=== PATIENT | male | born 1960 | race Caucasian/White ===

== ENCOUNTER 2016-09-14 17:28 | Emergency (ER) | payer BC ==
[2016-09-14 17:48] VITALS: BP 112/62
--- NOTE | 2016-09-14 18:02 | EDM.PDOC ---
Scribed by Mckenna Cantu 09/14/16 1800 for Hector Carrillo MD ED HPI GENERAL MEDICAL PROBLEM - General Chief Complaint: ENT Problem Stated Complaint: RETINA DETACHED?, [id number] Time Seen by Provider: 09/14/16 17:30 Source of Information: Reports: Patient, Club Waiter/Waitress, RN Notes Reviewed - History of Present Illness INITIAL COMMENTS - FREE TEXT/NARRATIVE: Patient arrived by POV stating that just prior to arrival he was combining when he had sudden onset of what appeared to be a red bloody tear drop in the field of vision followed by wavy and cloudy vision with dark flecks that looked to him as if jarad from a large fire were flowing in front of him, however he noticed that it was only in his right eye not the left. Denies any pain. Denies any symptoms in the left eye. Denies any prior history of eye problems. Symptoms have remained persistent since the onset. Onset: Today Location: Reports: Other (right eye) Severity: Moderate Improves with: Reports: None Worsens with: Reports: None Associated Symptoms: Reports: No Other Symptoms - Related Data Allergies Allergy/AdvReac Type Severity Reaction Status Date / Time No Known Allergies Allergy Verified 09/14/16 17:44 Home Meds: Home Meds Aspirin [Halfprin] 81 mg PO DAILY 09/14/16 [History] Clopidogrel [Plavix] 75 mg PO DAILY 09/14/16 [History] Metoprolol Succinate [Toprol Xl] 25 mg PO DAILY 09/14/16 [History] Ranitidine HCl [Ranitidine] 300 mg PO DAILY PRN 09/14/16 [History] atorvaSTATin [Lipitor] 20 mg PO DAILY 09/14/16 [History] Past Medical History Cardiovascular History: Reports: Hypertension, Other (See Below) (patient takes aspirin and Plavix but requested that he requested that Plavix not be put in his medication list and does not want to say why he is taking it.) Social & Family History - Family History Family Medical History: Unobtainable ED ROS ENT - Review of Systems Review Of Systems: ROS reveals no pertinent complaints other than HPI. ED EXAM, ENT - Physical Exam Exam: See Below Exam Limited By: No Limitations (however patient does not wish to disclose his full past medical history.) General Appearance: Alert, WD/WN, No Apparent Distress Eye Exam: Right Eye: Vision Changes (See RN entry for visual acuity.), Other ( wavy posterior eye slightly cloudy, prominent vessels with some dark streaks, concern for retinal detachment. ), Left Eye: Normal Fundi, Bilateral Eye: EOMI, PERRL Ears: Normal External Exam, Hearing Grossly Normal Nose: Normal Inspection, Normal Mucousa, No Blood Mouth/Throat: Normal Inspection, Normal Gums, Normal Lips, Normal Oropharynx, Normal Teeth Neck: Normal Inspection Respiratory/Chest: No Respiratory Distress Cardiovascular: Regular Rate, Rhythm Neurological: Alert, Oriented, Normal Cognition, Normal Gait, No Motor/Sensory Deficits Psychiatric: Anxious Skin: Warm, Dry, Intact, Normal Color, No Rash Course - Vital Signs Last Recorded V/S: Last Vital Signs Temp 36.3 C 09/14/16 17:46 Pulse 54 L 09/14/16 17:46 Resp 16 09/14/16 17:46 BP 112/62 09/14/16 17:46 Pulse Ox 99 09/14/16 17:46 Departure - Departure Time of Disposition: 17:47 Disposition: DC/Tfer to [facility] Condition: Serious Clinical Impression: Retinal detachment Qualifiers: Laterality: right Qualified Code(s): H33.21 - Serous retinal detachment, right eye - Discharge Information Forms: ED Department Discharge, Interfacility Transfer EMTALA I have read and agree with the documentation that has been completed regarding this visit. By signing this record, I attest that the documentation was completed in my physical presence and is an accurate record of the encounter.
== END 2016-09-14 17:50 ==
LOC: DL.ED 17:28
DX: H33.21 Serous retinal detachment, right eye (principal); I10 Essential (primary) hypertension; Z79.899 Other long term (current) drug therapy; Z79.82 Long term (current) use of aspirin
CPT/HCPCS: 99284